=== PATIENT | male | born 1950 | race Caucasian/White ===

== ENCOUNTER → 2016-06-24 | Outpatient (CLI) | payer BC ==
--- NOTE | ~2016-06-24 | ECH ---
Transthoracic Echocardiography Report (TTE) Demographics Patient Name LUIS E CASTILLO Date of Study 06/24/2016 Patient Number [id number] Visit Number [id number] Date of 1950 Room Number Accession Number [id number] Gender Male Age 65 year(s) Referring Delia Lacey Program Planner Iona Porras [facility] Physician MD Jonathan Ronquillo MD Physician Interpreting Anna Gonzalez MD Cafeteria Director Physician Supervising Ordering Physician Delia Lacey MD/P Nurse Stress Eyeglass Cutter Conclusions Summary Limited exam for ejection fraction. The estimated left ventricular ejection fraction is 60-65%. Mild septal left ventricular hypertrophy. The left atrium is mildly dilated by LA volume index measurement. The right atrium is mildly dilated. IVC measures 2.45 cm with inspiratory collapse. Procedure Type of Study TTE procedure:Echo Limited SF. Procedure Date Date: 06/24/2016 Start: 08:29 AM Technical Quality: Adequate visualization Indications:Pre-chemotherapy. Additional Indications:Herceptin baseline Appropriate Use Criteria: 9 Height: 73 inches Weight: 187 pounds BSA: 2.09 m Rhythm: Sinus bradycardia HR: 55 bpm BP: 132/79 mmHg M-Mode/2D Measurements LV Diastolic Dimension: 5.06 cm LV Systolic Dimension: 2.54 cm LV Septum Diastolic: 1.13 cm LV PW Diastolic: 1.02 cm AO Root Dimension: 2.94 cm LA Dimension: 4.14 cm RV Diastolic Dimension: 3.6 cm LA volume: 73.07 ml LA volume index: 35 ml/m IVC Inspiration: 1.58 cm LVOT: 2.23 cm RV Base: 3.6 cm RV Mid: 2.7 cm RV Length: 7.4 cm TAPSE: 2.5 cm TDI-S': 14 cm/s Doppler Measurements RA Area: 21 cm Findings Left Ventricle The left ventricle is normal in size . Mild septal left ventricular hypertrophy. Right Ventricle Normal right ventricle structure and function. Left Atrium The left atrium is mildly dilated by LA volume index measurement. Right Atrium The right atrium is mildly dilated. IVC measures 2.45 cm with inspiratory collapse. Mitral Valve Mild thickening of the mitral valve leaflets. Aortic Valve The aortic valve is mildly sclerotic. Tricuspid Valve Normal tricuspid valve structure and function. Pulmonic Valve The pulmonic valve is not well visualized. Pericardial Effusion No evidence of pericardial effusion. Miscellaneous Visualized portions of the aortic root and ascending aorta appear normal in size. Pleural Effusion No evidence of pleural effusion. Signature
== END | disposition home or self-care (01) ==
LOC: CARD 08:00 → EDSTATUS 08:00 → CARD 08:13
DX: C15.9 Malignant neoplasm of esophagus, unspecified (principal); C16.9 Malignant neoplasm of stomach, unspecified; I10 Essential (primary) hypertension; R04.0 Epistaxis; I51.7 Cardiomegaly

== ENCOUNTER → 2016-08-27 | Outpatient (CLI) | payer BC ==
--- NOTE | ~2016-08-27 | ECH ---
Transthoracic Echocardiography Report (TTE) Demographics Patient Name LUIS E CASTILLO Date of Study 08/27/2016 Patient Number [id number] Visit Number [id number] Date of 1950 Room Number Accession Number [id number] Gender Male Age 65 year(s) Referring Jonathan Ronquillo MD Economics Faculty Member Iona Porras [facility] Physician Physician Interpreting Anna Gonzalez MD Speck Dyer Physician Supervising Ordering Physician Almas Faria MD/CELEP MANAGER ENGAGEMENT Nurse Stress Bosom Presser Conclusions Summary Technically good exam. Limited for function. The estimated left ventricular ejection fraction is 65%. Mild septal left ventricular hypertrophy. Mildly dilated right ventricle with normal systolic function. The right atrium is mildly dilated. IVC measures 2.34 cm with inspiratory collapse. Mild prolapse of the posterior mitral valve leaflet. The aortic root appears mildly dilated. The maximum diameter measures 3.68 cm. Procedure Type of Study TTE procedure:Echo Limited SF. Procedure Date Date: 08/27/2016 Start: 01:16 PM Technical Quality: Good visualization Indications:High Risk Medication Use. Additional Indications:Herceptin, esophageal cancer Appropriate Use Criteria: 9 Height: 73 inches Weight: 174 pounds BSA: 2.03 m Rhythm: Within normal limits HR: 65 bpm BP: 102/62 mmHg M-Mode/2D Measurements LV Diastolic Dimension: 4.53 cm LV Systolic Dimension: 2.51 cm LV Septum Diastolic: 1.32 cm LV PW Diastolic: 1.12 cm AO Root Dimension: 3.68 cm LA Dimension: 3.87 cm LA volume: 62.4 ml LA volume index: 31 ml/m RV Base: 4.9 cm RV Mid: 3.5 cm RV Length: 6.4 cm Doppler Measurements RA Area: 18.55 cm Findings Left Ventricle The left ventricle is normal in size . Mild septal left ventricular hypertrophy. Right Ventricle Mildly dilated right ventricle with normal systolic function. Left Atrium Normal left atrial size. Right Atrium The right atrium is mildly dilated. IVC measures 2.34 cm with inspiratory collapse. Mitral Valve Mild thickening of the mitral valve leaflets. Mild prolapse of the posterior mitral valve leaflet. Aortic Valve Normal aortic valve structure and function. Tricuspid Valve The tricuspid valve appears thickened. Pulmonic Valve Normal pulmonic valve structure and function. Pericardial Effusion No evidence of pericardial effusion. Miscellaneous The aortic root appears mildly dilated. The maximum diameter measures 3.68 cm. Pleural Effusion No evidence of pleural effusion. Signature
== END | disposition home or self-care (01) ==
LOC: CARD 13:00
DX: Z51.81 Encounter for therapeutic drug level monitoring (principal); I10 Essential (primary) hypertension; I34.1 Nonrheumatic mitral (valve) prolapse; I51.7 Cardiomegaly; R04.0 Epistaxis; C15.9 Malignant neoplasm of esophagus, unspecified; C16.9 Malignant neoplasm of stomach, unspecified; Z79.899 Other long term (current) drug therapy